=== PATIENT | male | born 1995 | race African-American/Black ===

== ENCOUNTER 2017-11-30 14:06 | Emergency (ER) | payer BC ==
[~2017-11-30] VITALS: Ht 188 cm; Wt 77.1 kg
[2017-11-30] MEDS ORDERED: KEFLEX500 M1 PO (14:39)
[2017-11-30] MEDS ORDERED: TOBREX5 ML OPHTHALMIC (14:39)
== END 2017-11-30 14:50 | disposition home or self-care (01) ==
LOC: ER 14:06
DX: B99.8 Other infectious disease (principal); H10.89 Other conjunctivitis; S00.81XA Abrasion of other part of head, initial encounter; X58.XXXA Exposure to other specified factors, initial encounter; Y93.89 Activity, other specified; Y92.89 Other specified places as the place of occurrence of the external cause; Y99.8 Other external cause status

== ENCOUNTER 2018-02-03 18:08 | Emergency (ER) | payer BC ==
[~2018-02-03] VITALS: Ht 172.7 cm; Wt 61.2 kg
[~2018-02-03 18:08] MED LIST: KEFLEX500 M1 PO; TOBREX5 ML OPHTHALMIC
[2018-02-03] MEDS ORDERED: HYDROCORTISONE30 G9 RECTAL (18:40)
== END 2018-02-03 18:49 | disposition home or self-care (01) ==
LOC: ER 18:08
DX: S80.211A Abrasion, right knee, initial encounter (principal); K64.4 Residual hemorrhoidal skin tags; W18.39XA Other fall on same level, initial encounter; Y93.89 Activity, other specified; Y92.89 Other specified places as the place of occurrence of the external cause; Y99.8 Other external cause status